=== PATIENT | female | born 1990 | race Hispanic/Latino ===

== ENCOUNTER 2018-10-06 10:37 | Inpatient (IN) | payer OTHER ==
[2018-10-06] MEDS ORDERED: Ringers Lactate 1,000 ML IV PRN (12:10)
[2018-10-06] MEDS ORDERED: METHYLERGONOVINE 0.2MG/ML AMP IM PRN (12:10)
[2018-10-06] MEDS ORDERED: FENTANYL CITR 100 MCG/2 ML IV ONE (12:17)
[2018-10-06] MEDS ORDERED: ROPIVACAINE HCL 100 ML IV ONE (12:19)
[2018-10-06] MEDS ORDERED: ROPIVACAINE HCL 0.2% 20ML AMP IV ONE (12:20)
[2018-10-06] MEDS ORDERED: CARBOPROST TROME 250 MCG/ML IM ONE (12:21)
[2018-10-06 12:54] VITALS: BMI 4315.7
[2018-10-06] MEDS ORDERED: Ringers Lactate 1,000 ML IV SCH (13:00)
[2018-10-06] MEDS ORDERED: OXYTOCIN/LR 20 UNIT/1,000 ML BAG IV SCH (13:00)
[2018-10-06 13:01] LABS: RPR Titer ND
[2018-10-06 13:03] LABS: Absolute Lymphocytes (CBC) 1.6 K/uL (0.7-4.9); Absolute Monocytes 0.5 K/uL (0.1-1.3); Basophils % 0.7 % (0-1.3); Eosinophils % 0.4 % (0-4.4); Hematocrit 35.4 % (36.0-45.0); MPV 10.4 fL (7.6-11.3); Monocytes % 5.9 % (3.3-12.3); RBC Red Blood Cell Count 4.09 M/uL (3.86-4.86)
[2018-10-06 13:20] LABS: Urine Appearance CLOUDY; Urine Bilirubin NEGATIVE (NEG); Urine Blood 1+ (NEG); Urine Color YELLOW; Urine Glucose NEGATIVE (NEG); Urine Protein NEGATIVE (NEG); Urine Specific Gravity 1.025 (1.005-1.030); Urine Urobilinogen 0.2 mg/dL (0.2-1.0)
[2018-10-06 13:43] LABS: Urine Microscopic Reflex ORDER UMIC
[2018-10-06 13:45] LABS: Urine Amorphous Sediment 1+ /HPF (NONE SEEN); Urine Bacteria >50 /HPF (<20); Urine Culture Reflex Order NOT NEEDED; Urine Mucus MOD /HPF (NONE SEEN); Urine RBC <5 /HPF (NONE SEEN)
[2018-10-06] MEDS ORDERED: INFLUENZA VACCINE (for 3y+) 0.5 ML DOSE IMVAC ONE (14:00)
--- NOTE | 2018-10-06 19:59 | P.OBGYNHP ---
Certification for Inpatient Patient admitted to: Inpatient With expected LOS: >2 Midnights Patient will require the following post-hospital care: None Practitioner: I am a practitioner with admitting privileges, knowledge of patient current condition, hospital course, and medical plan of care. Services: Services provided to patient in accordance with Admission requirements found in Title 42 Section 412.3 of the Code of Federal Regulations Patient History Date of Service: 10/06/18 Reason for admission: LABOR History of Present Illness: Patient is a 27 y/o who presents at 39 weeks and 6 days gestation in early labor. Patient states that she has been nola since 1 am and the contractions have become stronger. She denies leakage of fluid or vaginal bleeding. She reports good movements. She has obtained care with [facility] beginning at 10 weeks gestation. Patient has been compliant with all visits. care has been uncomplicated. NIPT reveals low risk male infant. See record for further details. Allergies No Known Allergies Allergy (Unverified 10/06/18 12:10) Home Medications: Ferrous Gluconate [Iron] 18 mg PO DAILY 10/06/18 P[facility] Cmb#95/Ferrous Fumarate/FA [ Tablet] 1 tab PO DAILY 10/06/18 - Past Medical/Surgical History Diabetic: No - Social History Smoking Status: Never smoker Alcohol use: No CD- Drugs: No Caffeine use: Yes Place of Residence: Home Review of Systems 10-point ROS is otherwise unremarkable Physical Examination - Vital Signs Temperature: 98.0 F Blood Pressure: 117/80 Pulse: 106 Respirations: 18 - General General: Alert, Oriented x3, Moderate distress HEENT: Atraumatic Neck: Supple Respiratory: Normal air movement Cardiovascular: No edema, Normal pulses Breasts: Normal configuration, Normal contours, Symmetrical Gastrointestinal: W/out hepatomegaly, W/out splenomegaly, Other (gravid) Musculoskeletal: No clubbing, No swelling Integumentary: No rashes, No breakdown, No significant lesion Neurological: Normal gait, Normal speech - Female Pelvic External genitalia: Normal Vagina: Normal, [place], Moist Cervix: Dilation (2), Effacement (50), station (-2) Uterus: Gravid Adnexa: Unable to evaluate - Obstetrics heart rate tracing: Category 1 Contractions: Frequency (every 4-6 minutes) Laboratory Data (last 24 hrs) 10/06/18 12:37: WBC 9.2, Hgb 11.7 L, Hct 35.4 L, Plt Count 239 Assessment and Plan - Plan 27 y/o at 39 weeks and 6 days gestation presents in early labor. GBS negative. Pitocin started. Rupture of membranes performed and clear fluid noted. Epidural placement at patient's request. Continuous /maternal monitoring. Anticipate vaginal . Discharge Plan: Home Plan to discharge in: 48 Hours - Advance Directives Does patient have a Living Will: No Does patient have a Durable POA for Healthcare: No
[2018-10-06] MEDS ORDERED: FAMOTIDINE 20 MG/2 ML VIAL IV ONE (22:34)
[2018-10-06] MEDS ORDERED: ACETAMINOPHEN 500 MG TAB PO ONE (22:40)
[2018-10-06] MEDS ORDERED: ACETAMINOPHEN 500 MG TAB ONE (22:52)
[2018-10-06 23:32] LABS: RPR (Rapid Plasma Reagin) NON-REACT (NON-REACT)
[2018-10-07] MEDS ORDERED: ONDANSETRON 4 MG (ODT) TAB PO PRN (00:45)
[2018-10-07] MEDS ORDERED: ACETAMINOPHEN 500 MG TAB PO PRN (00:45)
--- NOTE | 2018-10-07 00:46 | P.OP ---
Date of Service: 10/07/18 Findings and Operative Technique Patient delivered a viable male in cephalic presentation on 10/07/2018 at 12:13 a.m.. Infant was delivered over a midline episiotomy with vacuum assisted vaginal delivery due to bradycardia and maternal exhaustion. Once infant was delivered. The nose and mouth were suctioned with a suction bulb cord was clamped and cut and was placed on mother's abdomen for skin to skin bonding. Cord blood was then obtained. Placenta was then delivered with gentle traction. Placenta was delivered at 12:17 a.m.. Placenta was examined and was noted to be intact. Attention was then turned to the uterus brisk bleeding was noted. Uterine massage was performed. Methargen was given IM. Uterus was then found to be firm. Attention was then turned to the episiotomy and bilateral vaginal sidewall tears were noted as well. The bilateral vaginal sidewall tears were approximated with a 2 0 Vicryl. Attention was then turned to the episiotomy which was repaired with a 2 0 Vicryl in usual fashion. Patient tolerated procedure well. Estimated blood loss was 400 cc. Apgars were assigned 8 and 9. Male infant weighed 7 lb. For stage of labor was 10 hr and 8 min. 2nd stage was 1 hr and 8 min. Patient had 1 temperature of 100.4 which resolved easily with Tylenol. Baby has been afebrile. CBC is been ordered for 6:00 a.m.. Vital signs will be monitored for further temperatures or tachycardia. Epidural will be removed. Routine care provided.
[2018-10-07] MEDS ORDERED: METHYLERGONOVINE 0.2MG/ML AMP IM ONE (01:09)
[2018-10-07] MEDS: Oxycodone HCl/Acetaminophen 1 TAB TAB PO PRN ×3 (02:33→20:22)
[2018-10-07] MEDS: IBUPROFEN 200 MG TAB PO PRN (06:21)
[2018-10-07 06:44] LABS: Absolute Lymphocytes (CBC) 1.7 K/uL (0.7-4.9); Absolute Monocytes 1.4 K/uL (0.1-1.3); Absolute Neutrophil 20.5 K/uL (1.8-8.0); Basophils % 0.2 % (0-1.3); Hematocrit 28.7 % (36.0-45.0); Lymphocytes % 7.1 % (15.3-44.8); MPV 10.2 fL (7.6-11.3); Monocytes % 5.9 % (3.3-12.3); RBC Red Blood Cell Count 3.32 M/uL (3.86-4.86)
[2018-10-07 08:08] LABS: Blood Morphology Comment NOT SEEN (NOT SEEN); Platelet Estimate ADEQ
[2018-10-07 11:59] LABS: MPV 9.9 fL (7.6-11.3); RBC Red Blood Cell Count 2.89 M/uL (3.86-4.86)
[2018-10-07] MEDS: METHYLERGONOVINE 0.2 MG TAB PO PRN ×3 (12:34→20:23)
[2018-10-07] MEDS ORDERED: FAMOTIDINE 20 MG/2 ML VIAL IV ONE (21:57)
[2018-10-08] MEDS: METHYLERGONOVINE 0.2 MG TAB PO PRN (00:33)
[2018-10-08] MEDS: IBUPROFEN 200 MG TAB PO PRN (05:00)
[2018-10-08] MEDS ORDERED: MEASLES,MUMPS,RUBELLA VAC 0.5ML SQVAC ONE (08:19)
[2018-10-08 09:59] VITALS: BP 100/66; TEMP 97.7
--- NOTE | 2018-10-08 14:56 | DS ---
Date of Discharge: 10/08/2018 Hospital Course: A 27-year-old, primigravida, patient of Dr. Barron's. Vaginal delivery. 400 cc blo od loss. Rh positive. Nonimmune to Rubella. Following delivery, the patient had serial hematocrits which went from 36 to 29 to 25, but then backed up to 29. The patient is stable. Lochia is normal. She is afebrile. White count was elevated, but is coming down, and patient has remained afebrile. She will be dismissed this morning, but she knows to take her temperatures and any temperature that hits a 100, she is to call our peer if it is during the weekend, call Dr. Barron's office if it is dur ing the week. She request Motrin for analgesia. We will send her home with a prescription. GI prec autions given. Full discussion about rubella immunization. She has apparently already had her Tdap immunization. Final Diagnoses: 1.Term intrauterine . 2.Vaginal delivery. 3.Rubella immunization offered. 4.Maternal anemia, now stable. JANAE/JANUARY Voice ID: [id number] Report ID: [id number]
[2018-10-10 03:57] LABS: HBsAG Nonreactive (Nonreactive)
== END 2018-10-08 09:40 | disposition home or self-care (01) | DRG 807 ==
LOC: L&D 10:37 → 2ND-WC 12:10
PROVIDERS: ADMIT Student in an Organized Health Care Education/Training Program; ATTEND Student in an Organized Health Care Education/Training Program
PROC: 10D07Z6 Extraction of Products of Conception, Vacuum, Via Natural or Artificial Opening (ICD-10-PCS; principal; 2018-10-07)
PROC: 0KQM0ZZ Repair Perineum Muscle, Open Approach (ICD-10-PCS; 2018-10-07)
PROC: 0W8NXZZ Division of Female Perineum, External Approach (ICD-10-PCS; 2018-10-07)
DX: O75.81 Maternal exhaustion complicating labor and delivery (principal); Z37.0 Single live birth; O76 Abnormality in fetal heart rate and rhythm complicating labor and delivery; O71.4 Obstetric high vaginal laceration alone; O66.5 Attempted application of vacuum extractor and forceps; Z3A.39 39 weeks gestation of pregnancy; O90.81 Anemia of the puerperium; D64.9 Anemia, unspecified
CPT/HCPCS: 36415; 81003; 81015; 85014; 85025; 85027; 86592; 86901; 87340; 90707; G0433; J2210; J2590; J2795; J3010